=== PATIENT | male | born 1965 | race Caucasian/White ===

== ENCOUNTER 2016-12-14 20:37 | Inpatient (IN) | payer OTHER, MEDICAID ==
[~2016-12-14] VITALS: Ht 180.3 cm; Wt 91.4 kg
[2016-12-14 21:49] LABS: PLATELET COUNT 214 x10^3mcL (130-400); RED CELL DISTRIBUTION WIDTH 12.6 % (11.5-14.5)
[2016-12-14 21:54] LABS: BASOPHIL % 0 % (0-2)
--- NOTE | 2016-12-14 21:55 | NUR ---
PATIENT COMPLAINT OF ABDOMINAL PAIN , N/V X 3 DAYS. HISTORY OF DIABETES. PATIENT WAS SEEN BY MD. SALINE LOCK INSERTED. BLOOD WAS SDRAWN BY PADDED PRODUCTS INSPECTOR TRIMMER. PATIENT MEDICATED WITH ZOFRAN IVP AND GI COCKTAIL,
[2016-12-14 22:01] LABS: CALCIUM 8.3 mg/dL (8.5-10.1); CARBON DIOXIDE 16.9 mmol/L (21-32); CREATININE SERUM 2.3 mg/dL (0.7-1.3); POTASSIUM SERUM 4.4 mmol/L (3.5-5.1)
[2016-12-14 22:05] LABS: BILIRUBIN TOTAL 0.32 mg/dL (0.20-1.00); TOTAL PROTEIN, SERUM 6.9 g/dL (6.4-8.2)
[2016-12-14 22:06] LABS: ALBUMIN 3.2 g/dL (3.4-5.0)
[2016-12-14] MEDS ORDERED: LIPI20 PO (23:31)
[2016-12-14] MEDS ORDERED: NOR5 PO (23:31)
[2016-12-14] MEDS ORDERED: LANTUS SOLOS100 U/M1 SQ (23:32)
[2016-12-15] MEDS ORDERED: NOR10 PO (00:09)
[2016-12-15] MEDS ORDERED: LIPITOR40 MG PO (00:09)
[2016-12-15] MEDS ORDERED: HYDRALAZINE HCL25 MG PO (00:12)
[2016-12-15] MEDS ORDERED: SINGULAIR4 MG/Packe (00:12)
--- NOTE | 2016-12-15 00:14 | NUR ---
PSTIENT IS ADMITTED TO THE HOSP.MRSA WAS DONE.
--- NOTE | 2016-12-15 01:02 | NUR ---
PATIENT MEDICATED WITH TORADOL IVP FOR HEADACHE.
--- NOTE | 2016-12-15 01:20 | NUR ---
RESIDENT MD AT THE BEDSIDE.
--- NOTE | 2016-12-15 01:25 | NUR ---
BLOOD PRESSURE IS NOW 148/76, OK TO HOLD THE HYDRALAZINE. PATIENT EXPRESS HEADACHE IS NOW MILD.REPORT WAS GIVEN TO MAT AND THE PATIENT WAS TRANSPORTED TO ROOM 210B.
[2016-12-15 01:59] VITALS: BP 148/78
[2016-12-15 02:09] LABS: T3 TOTAL 0.84 ng/mL
[2016-12-15 02:12] LABS: FREE T4 0.85 ng/dL (0.76-1.46); T4(THYROXINE) 5.5 ug/dL (4.7-13.3)
[2016-12-15 02:19] LABS: microscopic required? YES; urine erythrocyte TRACE (NEGATIVE)
[2016-12-15 02:20] LABS: CHOLESTEROL/HDL RATIO 3.5; MAGNESIUM 1.7 mg/dL (1.8-2.4); PHOSPHOROUS 3.4 mg/dL (2.5-4.9)
[2016-12-15 02:27] LABS: AMPHETAMINE QUAL UR NONE DETECTED (NEG <=1000)
--- NOTE | 2016-12-15 03:30 | NUR ---
PT ARRIVED AT 0134 TO MST UNIT FROM ED VIA GUERNEY ACCOMPANIED BY NURSE. PT ALERT AND AWAKE. AOX4. VERBAL PRIMARILY IN CHINESE WITH CLEAR SPEECH. SISTER, DANY, AT BEDSIDE. DENIES ANY SOB. NO S/S OF RESPIRATORY DISTRESS NOTED. LUNGS CLEAR BILATERALLY. ON TELE #30, NSR. DENIES ANY CHEST PAIN. BOWEL SOUNDS ACTIVE. LAST BM 12/14/16. PT STATES HAVING LOOSE STOOLS. DENIES ANY DISCOMFORT AT THIS TIME. SKIN WARM AND DRY. IV PATENT AND INTACT TO LEFT AC. IV NS BOLUS AND MAG RIDER INFUSING WELL. 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 SKIN AT AMPUTATION SITE INTACT. ALSO NOTED WITH RIGHT GREAT TOE AMPUTATION WITH SKIN INTACT. NO S/S OF SKIN BREAKDOWN. PULSE PALPABLE TO RIGHT FOOT. NO EDEMA NOTED. DENIES ANY PAIN AT THIS TIME. RESTING COMFORTABLY WITH RELAXED FACIAL FEATURES. CALL LIGHT WITHIN REACH. WILL CONTINUE TO MONITOR.
[2016-12-15 06:09] VITALS: BP 156/79
[2016-12-15 06:20] LABS: BASOPHIL % 0.2 % (0-2); PLATELET COUNT 185 x10^3mcL (130-400)
[2016-12-15 06:29] LABS: CALCIUM 7.9 mg/dL (8.5-10.1); CARBON DIOXIDE 18.4 mmol/L (21-32); MAGNESIUM 2.2 mg/dL (1.8-2.4); POTASSIUM SERUM 4.3 mmol/L (3.5-5.1)
[2016-12-15 06:43] LABS: ALBUMIN 2.7 g/dL (3.4-5.0)
--- NOTE | 2016-12-15 07:55 | NUR ---
A/O X4. CLEAR SPEECH. FOLLOW COMMANDS. BERMUDIAN SPEAKING . ON TEL 30 HR 76. RADIAL AND PEDAL PULSES PALPABLE. NO EDEMA OR SWELLING NOTED. <3 SECS CAP REFILL. ON RA SAT 97%. BREATHING EVEN AND UNLABORED. CLEAR LUNG SOUNDS. NO NVD THIS TIME. VOIDING ADEQUATELY. USES URINAL. AMBULATORY WITH STEADY GAIT. LEFT FOOT PROSTHETIC AT BEDSIDE. HAS LEFT BKA AND RIGHT GREAT TOE AMPUTATION. DENIES PAIN THIS TIME. IV SITE INTACT ON LAC. NS INFUSING WELL AT 130 ML/HR. WILL CONTINUE TO MONITOR. CALL LIGHT WITHIN REACH.
--- NOTE | 2016-12-15 08:59 | NUR ---
TOOK MEDS WITHOUT DIFFICUTLY. NO DISTRESS NOTED. WILL CONTINUE TO MONITOR.
--- NOTE | 2016-12-15 09:50 | NUR ---
UA SENT DOWN TO LAB.
[2016-12-15 13:17] VITALS: BP 167/89
--- NOTE | 2016-12-15 13:19 | NUR ---
SITTING DOWN ON A CHAIR. NO DISTRESS NOTED. WILL CONTINUE TO MONITOR.
--- NOTE | 2016-12-15 16:30 | NUR ---
RESTING COMFORTABLY. SISTER AT BEDSIDE. WILL CONTINUE TO MONITOR.
[2016-12-15 17:19] VITALS: BP 175/87
--- NOTE | 2016-12-15 18:19 | NUR ---
SISTER AT BEDSIDE. NO DISTRESS NOTED. WILL CONTINUE TO MONITOR.
[2016-12-15 18:29] VITALS: BP 166/81
--- NOTE | 2016-12-15 18:52 | NUR ---
SPOKE TO DR CINTRON REGARDING HIGH BP. SEE VS. ORDERED TO GIVE HYDRALAZINE IV NOW. WILL CONTINUE TO MONITOR.
--- NOTE | 2016-12-15 20:40 | NUR ---
AAO X 4. SITTING ON CHAIR, WATCHING TV. BREATHING EVEN AND UNALBORED ON ROOM AIR. SINUS RHYTHM ON TELE. IVF OF NS AT 130ML/HR. DENIES HAVING PAIN AT THIS TIME.
[2016-12-15 21:50] VITALS: BP 157/79
--- NOTE | 2016-12-16 00:59 | NUR ---
AWAKE AND ALERT, BREATHING UNLABORED. NEW ORDER FOR AFRIN NASAL SPRAY NOTED. IVF OF NS AT 130ML/HR.
--- NOTE | 2016-12-16 02:12 | NUR ---
EYES CLOSED, BREATHING EVEN AND UNLABORED. CALL LIGHT WITHIN EASY REACH
--- NOTE | 2016-12-16 04:39 | NUR ---
Awake and up using the urinal. No c/o pain call light within reach.
[2016-12-16 06:07] VITALS: BP 167/82
--- NOTE | 2016-12-16 06:22 | NUR ---
AWAKE AND ALERT, NO CHANGES TO NEURO CONDITION. BREATHING EVEN AND UNLABORED. DENIES HAVING PAIN AT THIS TIME.
--- NOTE | 2016-12-16 06:22 | NUR ---
BP 167/82, DE 79. INFORMED DR. CINTRON VIA [facility]
[2016-12-16 06:55] LABS: BASOPHIL % 0.5 % (0-2); PLATELET COUNT 203 x10^3mcL (130-400)
[2016-12-16 07:24] LABS: CALCIUM 8.4 mg/dL (8.5-10.1); CARBON DIOXIDE 16.7 mmol/L (21-32); CREATININE SERUM 1.7 mg/dL (0.7-1.3); POTASSIUM SERUM 4.5 mmol/L (3.5-5.1)
--- NOTE | 2016-12-16 08:00 | NUR ---
RECIEVED PATIENT ALERT AND ORIENTED TIMES FOUR. PATIENT HAS BEEN OOB AND TOLERATED WELL AND WITH NOTED PROTHESIS TO THE LEFT LEG. PATIENT HAS PER HIS STAEMENT NO FOOT BUT DID MANTAIN THE LEG ON THE LEFT. PATIENT AHS A BRAE FROM THE FOOT TO HE KNEE. PATIENT HAS NOTED ELEVATED BP THIS AM AND RECIEVED HIS NORVASC EARLIER AND THE HYDOLOZINE WELL. PATIENT HAS BP AT THIS TIME AT 156/86, AND OTHER VITALS AT 83, 20, 98.3, 98% ON ROOM AIR. PATIENT HAS BEEN TOLERATING DIETR AND FLUIDS WELL. NOTED LABS ARE THE H AND H OF 10.8/32, BUN AT 24.0 AND CREATININE AT 1.7. PATIENT HAS A CYST IN THE HEPATIC AREA AND WITH
[2016-12-16 09:19] VITALS: BP 144/86
--- NOTE | 2016-12-16 10:20 | NUR ---
PATIENT SEEN BY DR CARLSON AND STAFF AND PLAN OF CARE DISCUSSED. PATIENT HAS BEEN WITH ELEVATED BP AND DR CARLSON EXPLAINED THE NEED TO GET THE BP DOWN AND TO KEEP THE BLOOD SUGARS IN CHECK WELL.
[2016-12-16 12:35] VITALS: BP 164/89
--- NOTE | 2016-12-16 13:07 | NUR ---
BLOOD SUGAR AT THIST IMEAT 246 AND GAVE 6 UNITS OF REGULAR. PATIENT WAS ANXIOUS ABOUT HIS INSULIN HE STATES HE USES ANOTHER TYPE AT HOME. THE PATEINT USES A PREFILLED PEN. PATIENT WAS GIVEN HUMULIN R PROTOCAL AND PATIENT IS WORRIED THAT THIS IS NOT ADEQUATE AND THAT IS WHY THE SUGAR REMAINS ELEVATED,. REMINDED THE PATEINT THOUGH IS BODY IS UNDER DISTRESS AND THIS TOO CAN CAUSE AN ELEVATION IN THE BP AND THE BLOOD SUGAR. PATIENT IS CALLING HOME FOR THE NAME OF THE INSULIN HE USES AND WILL GIVE TO THE APPLICATIONS PROCESSOR INDICATED.
--- NOTE | 2016-12-16 16:11 | NUR ---
FAMILY BROUGHT IN THE INSULIN THE PATIENT USES AT HOME. IT APPEARS TO BE THE SAME BUT IN A DIFFERENT FORMAT A PEN. PATIENT HAS NO DISCHARGE PLANS FOR TODAY AND WILL CONTINUE THE PLAN OF CARE INDICATED.
[2016-12-16 17:24] VITALS: BP 153/85
--- NOTE | 2016-12-16 17:54 | NUR ---
PATIENT BLOOD SUGAR AT 163 AND GAVE 3 UNITS OF REGULAR ORDERFED. PATIENT HAS BEEN WITHOUT ACUTE PAIN AND BP IS AT 153/85 AT THIS TIME. PATIENT IS AMBULATORY AND NO SIGNS OF DIZZINESS OR VERTIGO NOTED.
--- NOTE | 2016-12-16 19:39 | NUR ---
RECEIVED PATIENT IN BED AWAKE, ALERT AND ORIENTED WITH NO C/O PAIN AND DISCOMFORT THIS TIME, AT BEDSIDE. TELE #30 NSR ON MONITOR. IV TO RAC INTACT AND INFUSING WELL. WILL CONTINUE TO MONITOR,CALL LIGHT WITHIN REACH.
[2016-12-16 21:47] VITALS: BP 161/83
--- NOTE | 2016-12-16 23:39 | NUR ---
SLEEPING BREATHING EASY AND NONLABOR. WILL CONTINUE TO MONITOR.
--- NOTE | 2016-12-17 05:13 | NUR ---
SLEPT MOST OF THE TIME C/O HEADACHE X1 THE ENTIRE SHIFT AND MEDICATED PRESCRIBED. ALL NEEDS ATTENDED.
[2016-12-17 05:18] VITALS: BP 168/82
[2016-12-17 06:17] LABS: BASOPHIL % 0.4 % (0-2); PLATELET COUNT 189 x10^3mcL (130-400); RED CELL DISTRIBUTION WIDTH 12.9 % (11.5-14.5)
[2016-12-17 06:35] LABS: CALCIUM 8.3 mg/dL (8.5-10.1); CARBON DIOXIDE 17.6 mmol/L (21-32); CREATININE SERUM 1.7 mg/dL (0.7-1.3); POTASSIUM SERUM 4.4 mmol/L (3.5-5.1)
[2016-12-17 10:00] VITALS: BP 136/82
--- NOTE | 2016-12-17 11:01 | NUR ---
SEEN BY THE INTERNS AND PLAN OF CARE DISCUSSED. PATIENT HAS BEEN GIVEN HIS MEDICATIONS AND THE BP IMPROVED BUT STILL WITH ELEVATED BLOOD SUGARS. AWAITING ORDERS FOR PLAN OF CARE.
--- NOTE | 2016-12-17 11:02 | NUR ---
RCEIVED PATIENT ALERT AND ORIENTED TIMES FOUR PATIENT HAS BEEN OOB AND TOLERATED WELL. NOTED PROTHESES TO THE LEFT LOWER EXTREMITY AND WIH AKA AND HAS BEEN COMFORTABLE WITH THE PROTHESES AND NO COMPLAINT OF FITTING ISSUES OR PAIN. PATIENT WITH CLEAR BREATH SOUNDS AND ON ROOM AIR. GAVE ALL MEDICATIONS ORDERED AND PATIENT HAS BEEN WITH BLOOD SUGAR AT 272 AND COVERAGE WAS GIVEN. PATIENT HAS NOTED LABS OF H AHD OF 10.3/30, AND BUN AT 26.0 AND CREAININE AT 1.7. PATIEN HAS HAD AN ULTRASOUN TO HE ABDOMEN AND FINDINGS ARE A HEPATIC LOBE CYST ON THE RIGHT. PATIENT HAS SMALL VESSEL DISEASE AND PATIENT HAS BEEN CONTINUE DON IV LUIDS AND WITH HISTOYR OF DM, CHRONIC KIDNEY DISEASE A, HTN, AND HLD. STENOSIS NOTED TO HE BILATERALY LOWER EXTREMITES.
--- NOTE | 2016-12-17 11:40 | NUR ---
STUDENT DID HIS BLOOD SUGAR BUT THE PATIENT HAD BEEN THEN DRINKING JUICE ABOVE HIS DIET. NOW THE SUGAR AT 180. WILL COVER INDICATED BUT THIS IS PART OF HIS DIETARY BLOOD SUGAR CONTROL PROBLEM. WILL ADVISE THE PATIENT NOT TO EAT BETWEEN MEALS OR TO EAT APPROPRIATELY FOODS AND DRINK TO MAINTAIN DIABETIC CONTROL.
[2016-12-17] MEDS ORDERED: GLU5 PO (13:28)
[2016-12-17] MEDS ORDERED: HUMALOG100 U/ML SC (14:50)
[2016-12-17] MEDS ORDERED: ZES10 PO (14:51)
[2016-12-17 15:17] VITALS: BP 136/82
--- NOTE | 2016-12-17 16:24 | NUR ---
PATIENT GIVEN DISCHARGE PAPERWORK AND TO FOLLOW UP WITH PRIMARY ORDERED AND ARRANGED. PATIENT TO POULTRY DRESSER HIS PRESCRIPTIONS AT [facility] THE ASSISTANT PROFESSOR NURSE EDUCATION HAS CALLED THE ORDERS INTO THIS PHARMACY FOR POULTRY DRESSER. PATIENT IS GIVEN EDUCATIONAL MATERIALS IN [facility] ON DIABETES. HTN. STROKE. IV REMOVED AND TELE WAS RETURNED TO THE MONITOR STATION PRIOR TO DISCHARGE. THE BLOOD PRESSURE HAS IMPROVED AND ENCOURAGED TO CONTINUE TO MONITOR FOR SIGNS AND SYMTOMS FOR STROKE OR ELEVATED GLUCOSE LEVELS.
== END 2016-12-17 16:00 | disposition home or self-care (01) | DRG 391 ==
LOC: ED 20:37 → DU 12-15 00:38 → MU 12-17 08:27
PROVIDERS: Emergency Medicine; ADMIT Family Medicine
DX: A08.4 Viral intestinal infection, unspecified (principal); N17.0 Acute kidney failure with tubular necrosis; E43 Unspecified severe protein-calorie malnutrition; E87.4 Mixed disorder of acid-base balance; D68.69 Other thrombophilia; E87.2 Acidosis; E11.65 Type 2 diabetes mellitus with hyperglycemia; E86.0 Dehydration; E83.51 Hypocalcemia; I12.9 Hypertensive chronic kidney disease with stage 1 through stage 4 chronic kidney disease, or unspecified chronic kidney disease; N18.9 Chronic kidney disease, unspecified; D64.9 Anemia, unspecified; J30.2 Other seasonal allergic rhinitis; E78.5 Hyperlipidemia, unspecified; M62.50 Muscle wasting and atrophy, not elsewhere classified, unspecified site; E87.8 Other disorders of electrolyte and fluid balance, not elsewhere classified; Z79.4 Long term (current) use of insulin; Z89.411 Acquired absence of right great toe; Z89.512 Acquired absence of left leg below knee
CPT/HCPCS: 82962; 83880; 84439; C9113; J0360; J0500; J1815; J1885; J2405; J3475; J7030; Q0092

== ENCOUNTER 2019-01-27 19:45 | Emergency (ER) | payer MEDICARE, MEDICAID ==
[~2019-01-27] VITALS: Ht 180.3 cm; Wt 81.2 kg
[~2019-01-27 19:45] MED LIST: GLU5 PO; HUMALOG100 U/ML SC; HYDRALAZINE HCL25 MG PO; LANTUS SOLOS100 U/M1 SQ; LIPI20 PO; LIPITOR40 MG PO; NOR10 PO; NOR5 PO; SINGULAIR4 MG/Packe; ZES10 PO
[2019-01-27 19:50] VITALS: Ht 180.3 cm; Wt 81.2 kg
[2019-01-27 20:58] LABS: BASOPHIL % 0.9 % (0-2); PLATELET COUNT 260 x10^3mcL (130-400); RED CELL DISTRIBUTION WIDTH 13.3 % (11.5-14.5)
[2019-01-27 21:10] LABS: CALCIUM 8.7 mg/dL (8.5-10.1); CARBON DIOXIDE 17.4 mmol/L (21-32); CREATININE SERUM 3.3 mg/dL (0.7-1.3); POTASSIUM SERUM 4.9 mmol/L (3.5-5.1)
[2019-01-27 21:15] LABS: ALBUMIN 3.5 g/dL (3.4-5.0); BILIRUBIN TOTAL 0.46 mg/dL (0.20-1.00)
[2019-01-27 21:57] VITALS: BP 165/85
== END 2019-01-27 21:57 | disposition home or self-care (01) ==
LOC: ED 19:45
PROVIDERS: Emergency Medicine
DX: N18.9 Chronic kidney disease, unspecified (principal); E87.2 Acidosis; F10.239 Alcohol dependence with withdrawal, unspecified; G40.509 Epileptic seizures related to external causes, not intractable, without status epilepticus; E11.22 Type 2 diabetes mellitus with diabetic chronic kidney disease; I10 Essential (primary) hypertension; F41.9 Anxiety disorder, unspecified
CPT/HCPCS: J1885; J3490; J7030; Q0092